=== PATIENT | male | born 1965 | race Caucasian/White ===

== ENCOUNTER 2021-10-30 19:06 | Emergency (ER) | payer OTHER, SELFPAY ==
--- NOTE | ~2021-10-30 | CT_ITS ---
EXAMINATION: CT brain wo con DATE: 10/30/2021 20:13 INDICATION: head injury . TECHNIQUE: Computed tomography (CT) of the head was performed without intravenous contrast. The mA wa s adjusted according to patient size. Iterative reconstruction technique was employed. The dose-lengt h product was 605.33 mGy-cm. COMPARISON: None FINDINGS: No acute intracranial hemorrhage or extra-axial fluid collection. No hydrocephalus, mass, or herniation. No acute ischemic infarct. Unremarkable dural venous sinus attenuation. No acute osseous abnormality. Posterior scalp contusion to the right of midline near the vertex. Left inferior frontal and bilateral anterior ethmoid mucosal thickening. Aerated spaces are clear. Left inferior frontal and anterior left temporal encephalomalacia. Mild atrophy and moderate chronic white matter change. Atherosclerotic intracranial calcifications. IMPRESSION: No acute intracranial process. Reviewed, dictated and finalized at location K.
--- NOTE | ~2021-10-30 | CT_ITS ---
EXAMINATION: CT cervical spine wo con DATE: 10/30/2021 20:13 INDICATION: fall, alcohol intoxication TECHNIQUE: Computed tomography (CT) of the cervical spine was performed without intravenous contrast. Automated exposure control and iterative reconstruction technique were employed. The dose-length pro duct was 562.17 mGy-cm. COMPARISON: None FINDINGS: Vertebral Body Alignment: Intact. Craniocervical and atlantoaxial alignment: Moderate degenerative change. Alignment intact. Osseous structures/fracture: No evidence of a lytic or blastic process in the visualized spine. No e vidence of acute fracture. Small right mastoid effusion. Cervical soft tissues: The paraspinal soft tissues planes are maintained. Degenerative changes: Multilevel degenerative disc disease and facet arthropathy. Severe right C5-6 n eural foraminal narrowing. No severe central canal stenosis. IMPRESSION: No acute fracture or traumatic malalignment in the cervical spine. Reviewed, dictated and finalized at location K.
[2021-10-30 19:07] VITALS: BP 82/58; PULSE 71; RESP 18; TEMP 36.6; O2SAT 95
--- NOTE | 2021-10-30 20:19 | ED.FALL ---
HPI - Fall General Chief Complaint: Fall Stated Complaint: fall, head injury, ETOH Time Seen by Provider: 10/30/21 19:52 Source: patient and RN notes reviewed Mode of arrival: ambulatory Limitations: intoxication History of Present Illness HPI Narrative: This is a 56 year old male who presents for evaluation of fall. Patient states he tripped and fell hitting back of his head on work bench. He denies LOC . He has head pain at location of his scalp laceration. He denies neck pain or any other injury. He admits to drinking 8 pack of beer today . He takes aspirin. Related Data Home Medications Medication Instructions Recorded Confirmed aspirin 81 mg capsule 81 mg PO DAILY 10/30/21 10/30/21 levothyroxine 100 mcg capsule mcg PO 10/30/21 metoprolol succinate 25 mg mg PO 10/30/21 10/30/21 tablet,extended release 24 hr rosuvastatin 40 mg tablet mg 10/30/21 sertraline 25 mg tablet mg 10/30/21 Allergies Allergy/AdvReac Type Severity Reaction Status Date / Time No Known Allergies Allergy Verified 10/30/21 19:36 Review of Systems Review of Systems: All systems reviewed & are unremarkable except as noted in HPI and below Constitutional: Constitutional: Denies chills and Denies fatigue Eyes: Eyes: Denies change in vision Respiratory: Respiratory: Denies chest congestion and Denies dyspnea Gastrointestinal: Gastrointestinal: Denies abdominal pain, Denies nausea and Denies vomiting Musculoskeletal: Musculoskeletal: Denies back pain Neurologic: Denies syncope, Reports headache(s) and Denies focal weakness [facility] Past Medical History Medical History (Updated 10/31/21 @ 00:00 by Kalyan Ruiz) Hypertension Social History Social History (Updated 10/30/21 @ 20:22 by Angie Liao MD) Alcohol intake: current Exam Const: General: no acute distress and alert Nutritional Appearance: well nourished Orientation/consciousness: patient oriented x3 Other: slurred speech HENMT: Head: laceration (right posterior v shape scalp laceration 4) Ears: external ears normal Face and sinus: normal facial exam Throat: posterior oropharynx normal Eyes: EOM: EOMs intact bilaterally Neck: Neck: normal visual inspection Chest: Chest palpation & inspection: normal inspection of the chest Resp: Effort & Inspection: normal respiratory effort Auscultation: clear to auscultation bilaterally Cardio: Rate: regular rate Rhythm: regular rhythm Heart sounds: no murmurs GI: GI Palp: Yes Soft to palpation, No Tenderness to palpation present (GI), No Guarding due to palpation present (GI) and No Rigid due to palpation Auscultation: normal bowel sounds Neuro: General: patient oriented x3 and CN's II-XI intact bilaterally Cranial nerves: Yes Nystagmus not present Other: slurred speech from intoxication Extrem: General: normal to inspection Course Vital Signs Vital signs: Vital Signs Temperature 97.9 F 10/30/21 19:07 Pulse Rate 71 10/30/21 19:07 Respiratory Rate 18 10/30/21 19:07 Blood Pressure 82/58 L 10/30/21 19:07 Pulse Oximetry 95 10/30/21 19:07 Oxygen Delivery Room Air 10/30/21 19:07 Temperature 97.9 F 10/30/21 19:07 Pulse Rate 71 10/30/21 19:07 Respiratory Rate 18 10/30/21 19:07 Blood Pressure 82/58 L 10/30/21 19:07 Pulse Oximetry 95 10/30/21 19:07 Oxygen Delivery Room Air 10/30/21 19:07 Procedures Laceration Laceration 1: Date: 10/30/21 Time: 21:13 Site: scalp Size (cm): 4 Description: flap Depth: simple, single layer Local Anesthetic: lidocaine 2% and with epi Amount of anesthesia used (mL): 4 Pre-repair: irrigated ====== Skin Level ====== Skin layer closed with: samaria Number of sutures: 12 ====== Subcutaneous Layer ====== ====== Muscle Layer ====== ====== Tendon Layer ====== MDM - Fall Lab Data Attestation: I reviewed the indira
[2021-10-30] MEDS: LACTATED RINGERS 1,000 ML 999 ML IV CONT (20:25)
--- NOTE | 2021-10-30 20:26 | PC.NURSE ---
Pts daughter on the phone with pts . 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 Pt states I do not need anything other then a cigarette I dont need no medications.
[2021-10-30 20:28] LABS: Basophils Absolute Auto 0.1 K/mm3 (0.0-0.1); Basophils Percent Auto 0.6 % (0.2-1.2); Eosinophils Absolute Auto 0.3 K/mm3 (0-0.3); Eosinophils Percent Auto 2.7 % (0-4.4); Hemoglobin 14.2 g/dL (14.0-18.0); Immature Granulocyte Absolute 0.07 K/mm3 (0.00-0.031); Immature Granulocyte Percent A 0.7 % (0-0.5); Lymphocytes Absolute Auto 2.34 K/mm3 (0.9-3.2); Lymphocytes Percent Auto 22.5 % (18.3-44.2); Mean Corpuscular Hemoglobin 31.3 pg (26-34); Mean Corpuscular Volume 94.7 fl (80-100); Mean Platelet Volume 10.4 fl (7.4-10.4); Monocytes Absolute Auto 0.9 K/mm3 (0.1-0.6); Monocytes Percent Auto 8.5 % (2.6-8.5); Neutrophils Absolute Auto 6.8 K/mm3 (1.3-6.7); Platelet Count Result 179 k/mm3 (150-375); Red Blood Count 4.54 M/mm3 (4.6-6.20); Red Cell Distribution Width 13.2 % (11.5-14.5); White Blood Count 10.4 K/mm3 (4.5-10.0)
[2021-10-30 20:38] LABS: Lactic Acid Reflex 1.5 mmol/L (0.7-2.0)
[2021-10-30 20:43] LABS: Alanine Aminotransferase 37 U/L (6-50); Albumin Level 4.2 g/dL (3.5-5.1); Alkaline Phosphatase 63 U/L (38-126); Anion Gap 16 mmol/L (8-16); Aspartate Amino Transferase 44 U/L (17-59); Bilirubin,Total 0.3 mg/dL (0.2-1.3); Blood Urea Nitrogen 7 mg/dL (9-20); Calcium 8.2 mg/dL (8.4-10.2); Carbon Dioxide 19 mmol/L (22-30); Chloride 97 mmol/L (98-107); Estimated CRCL calculation 80 ml/min; Estimated Glomerular Filt Rate > 60; Glucose 101 mg/dL (65-110); Magnesium 1.9 mg/dL (1.6-2.3); Potassium 3.8 mmol/L (3.4-5.0); Sodium 132 mmol/L (137-145)
[2021-10-30 20:52] LABS: Appearance Urine Clear (Clear); Bilirubin Urine Negative (Negative); Blood Urine Negative (Negative); Color Urine Yellow (Yellow); Glucose Urine UA Negative (Negative); Ketones Urine Negative (Negative); Leukocyte Esterase Ur Negative LEU/UL (Negative); Nitrate Urine Negative (Negative); Protein Urine Negative (Negative); Specific Grav Ur <= 1.005 (1.001-1.035); Urobilinogen Urine 0.2 mg/dL (<2.0); pH Urine 5.5 (5.0-9.0)
[2021-10-30 20:58] LABS: Add Urine Microscopic? NO
[2021-10-30 21:06] LABS: Prothrombin Time 12.8 Seconds (11.1-14.7)
[2021-10-30 21:07] LABS: Partial Thromboplastin Time 27.1 SECONDS (22.3-36.8)
[2021-10-30] MEDS: TETANUS,DIPHTHERIA,AC PERTUSSIS ADULT (0.5 ML) BOOSTRIX IM (21:18)
[2021-10-30] MEDS: LIDO 2%/EPINEPHRINE 1:100,000 20 ML VIAL INFILTRATE (21:19)
== END 2021-10-30 21:25 | disposition home or self-care (01) ==
PROVIDERS: Emergency Provider General Practice
DX: S01.01XA Laceration without foreign body of scalp, initial encounter (principal); Z23 Encounter for immunization; I10 Essential (primary) hypertension; Z79.82 Long term (current) use of aspirin; W01.0XXA Fall on same level from slipping, tripping and stumbling without subsequent striking against object, initial encounter
CPT/HCPCS: 12002; 36415; 70450; 72125; 80053; 81003; 83605; 83735; 85025; 85610; 85730; 90471; 90715; 96360; 99283; J7120